=== PATIENT | female | born 1995 | race Two or more races ===

== ENCOUNTER 2025-05-26 12:14 | Emergency (ER) | payer OTHER ==
[~2025-05-26] VITALS: Ht 170.2 cm; Wt 147.2 kg
--- NOTE | 2025-05-26 12:58 | ED.PDOC ---
Burn HPI HPI Comments This is a 30 year old female presenting to the ED with chief complaint of burn. Patient reports that she was playing with a sparkler last night for May 25, however, she had accidentally burned the top of her right thumb, causing a blister to form. Patient denies any numbness, weakness, tingling, or further injury. Chief Complaint: Ortega Time Seen by MD: 12:55 Reviewed notes: Nurses Notes, Medications, Allergies Allergies: Coded Allergies: NO KNOWN ALLERGIES (Unverified , 05/26/25) Information Source: Patient Mode of Arrival: Ambulatory Severity: Mild Timing: Hours Duration: Since onset Prehospital treatment: None Type of Burn: Thermal Occured in: Open Space Tetanus: UTD Location: Other (Right thumb) Burn Quality: Blisters Past Medical History PAST MEDICAL HISTORY: Denies Surgical History: Denies all surgeries DIE EQUIPMENT OPERATOR History: No Pertinent DIE EQUIPMENT OPERATOR History Family History Family History: Reviewed,noncontributory to illness Social History Smoker: Non-Smoker Alcohol: Denies ETOH Use Drugs: Denies Drug Use Lives In: Home Constitutional: denies: chills, diaphoresis, fatigue, fever, malaise, sweats, weakness, others EENTM: denies: blurred vision, double vision, ear bleeding, ear discharge, ear drainage, ear pain, ear ringing, eye pain, eye redness, hearing loss, mouth pain, mouth swelling, nasal discharge, nose bleeding, nose congestion, nose pain, photophobia, tearing, throat pain, throat swelling, voice changes, others Respiratory: denies: cough, hemoptysis, orthopnea, SOB at rest, shortness of breath, SOB with excertion, stridor, wheezing, others Cardiovascular: denies: chest pain, dizzy spells, diaphoresis, Dyspnea on exertion, edema, irregular heart beat, left arm pain, lightheadedness, palpitations, PND, syncope, others Gastrointestinal: denies: abdomen distended, abdominal pain, blood streaked bowels, constipated, diarrhea, dysphagia, difficulty swallowing, hematemesis, melena, nausea, poor appetite, poor fluid intake, rectal bleeding, rectal pain, vomiting, others Genitourinary: denies: abnormal vagina bleeding, burning, dyspareunia, dysuria, flank pain, frequency, hematuria, incontinence, pain, , vagina discharge, urgency, others Neurological: denies: dizziness, fainting, headache, left sided numbness, left sided weakness, numbness, paresthesia, pre-existing deficit, right sided numbness, right sided weakness, seizure, speech problems, tingling, tremors, weakness, others Musculoskeletal: denies: back pain, gout, joint pain, joint swelling, muscle pain, muscle stiffness, neck pain, others Integumetry: reports: others (Blister to right thumb); denies: bruises, change in color, change in hair/nails, dryness, laceration, lesions, lumps, rash, wounds Allergic/Immunocompromised: denies: Difficulty Healing, Frequent Infections, Hives, Itching, others Hematologic/Lymphatic: denies: anemia, blood clots, easy bleeding, easy bruising, swollen glands, others Endocrine: denies: excessive hunger, excessive sweating, excessive thirst, excessive urination, flushing, intolerance to cold, intolerance to heat, unexplained weight gain, unexplained weight loss, others Psychiatric: denies: anxiety, bipolar disorder, depression, hopeless, panic disorder, schizophrenia, sleepless, suicidal, others All Other Systems: Reviewed and Negative Physical Exam General Appearance: No Apparent Distress, Normal HEENT: Normal ENT Inspection, Pharynx Normal, TMs Normal Neck: Full Range of Motion, Non-Tender, Normal, Normal Inspection Respiratory: Chest Non-Tender, Lungs Clear, No Accessory Muscle Use, No Respiratory Distress, Normal Breath Sounds Cardiovascular: No Edema, No JVD, No Murmur, No Gallop, Normal Peripheral Pulses, Regular Rate/Rhythm Breast Exam: Deferred Gastrointestinal: No Organomegaly, Non Tender, No Pulsatile Mass, Normal Bowel Sounds, Soft Genitalia: Deferred Pelvic: Deferred Rectal: Deferred Extremities: No calf tenderness, Normal capillary refill, Normal range of motion, Non-tender, No pedal edema, Other (Mild, 2nd degree burn to radial aspect of right thumb next to nail.) Musculoskeletal : Apperance: Normal Neurologic: Alert, 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 Was a procedure done?: No Differentail Diagnosis (BRN) Differential Diagnosis: Burn-Partial Thickness, Burn-Full Thickness, Other (CELLULITIS) X-Ray, Labs, Meds, VS Vital Signs Date Time Temp Pulse Resp B/P (MAP) Pulse Ox O2 Delivery O2 Flow Rate FiO2 05/26/25 12:42 98.9 87 20 168/90 (116) 98 98.9 Time of 1ST Reevaluation: 13:55 Reevaluation 1ST: Unchanged Patient Education/Counseling: Diagnosis, Treatment, Prognosis, Need For Follow Up Family Education/Counseling: No Family Present Comments PT HAS A SMALL 2ND DEGREE BURN ON HER RIGHT THUMB. THERE IS NO SIGNS OF CELLULITIS. PT IS STABLE FOR DISCHARGE WITH NEOSPORIN FOR WOUND CARE AND TDAP UPDATE Additional Information Reviewed patient's previous visit(s): None The following tests were ordered, and results were reviewed by me: None Additional information was gathered from interviewing the following independent historian: None I reviewed and agreed with the following test results read by other provider: None I discussed treatments and results with medical personnel and: Patient Comprehensive systems review obtained and negative except for what is stated in the HPI. SEPSIS Sepsis Screen Date sepsis recognized/suspect: May 26, 2025 Time Sepsis recognized/suspect: 1240 Recent Procedure: No On Antibiotic Therapy: No Respiratory Rate >20: No Heart Rate >90: No Temp<36 C (96.8 F) or >38.3 C: No SBP <90 or MAP <65 mmHG: No New Acute Mental Status Change: No Is the patient on CPAP, BIPAP,: No Vital Signs Date Time Temp Pulse Resp B/P (MAP) Pulse Ox O2 Delivery O2 Flow Rate FiO2 05/26/25 12:42 98.9 87 20 168/90 (116) 98 98.9 Departure 1 Departure Time of Disposition: 13:02 Impression: Primary Impression: Burn Disposition: 01 HOME / SELF CARE / HOMELESS Condition: Good Discharged With: Self Critical Care Note Critical Care Time?: No Stability Stability form required: No Heart Score Heart Score: Heart Score Response (Comments) Value History N/A 0 EKG N/A 0 Age N/A 0 Risk Factors N/A 0 Troponin N/A 0 Total 0 I personally scribed for FADY VEGA MD ([email or web address]) on 05/26/25 at 12:58. Electronically submitted by Villa Geller ([email or web address]). FADY VEGA MD May 26, 2025 12:58
[2025-05-26 13:17] VITALS: BP 146/94; PULSE 85; RESP 18; TEMP 98.8; O2SAT 97
[2025-05-26] MEDS: TETANUS-DIPTH-ACEL PERTUSSIS 0.5ML SYR Tdap IM ONE (13:24)
== END 2025-05-26 13:21 | disposition home or self-care (01) ==
LOC: ER 12:14
DX: T23.011A Burn of unspecified degree of right thumb (nail), initial encounter (principal); X08.8XXA Exposure to other specified smoke, fire and flames, initial encounter; Y93.89 Activity, other specified; Y92.89 Other specified places as the place of occurrence of the external cause; Y99.8 Other external cause status
CPT/HCPCS: 16000